=== PATIENT | female | born 1955 | race Caucasian/White ===

== ENCOUNTER → 2016-12-19 | Outpatient (CLI) | payer OTHER ==
[~2016-12-19] MED LIST: ARIMIDEX1 MG PO; CALCIUM 500 + D1 TAB PO; CALCIUM 600 +1 EAC5 PO; COMBIVENT U/D3 M2 INH; DELTASONE20 MG PO; DEXAMETHASONE4 MG PO; FOLIC ACID PO; FOLIC ACID1 MG PO; HYDROCODON-ACE1 EAC5 PO; MAG-OX 400400 M1 PO; MAGNESIUM27 MG; METHOTREXATE2.5 MG PO; METRONIDAZOLE PO; MOBIC PO; MOBIC15 MG PO; OMEPRAZOLE10 M1 PO; OMEPRAZOLE20 M2 PO; OMNICEF300 M1 PO; ROBITUSSIN-COU237 ML PO; TURMERIC 450-51 EACH PO; TYLOX 5/500 CAP1 CAP PO; VITAMIN B12 INJ; VITAMIN C1000 M2 PO; VITAMIN D31000 UNIT PO; ZITHROMAX500 MG PO; [UNRECOGNIZED DRUG - OTHER] PO
--- NOTE | ~2016-12-19 | CT55 ---
[facility] A Service of [facility] RADIOLOGY TEXT RESULTS PATIENT: SAMY BUCHANAN LOCATION: [facility] : 56 UNIT #: [id number] AGE: [address]: Yen Darby MD SEX: F ORDER DR: [id number] [facility] [address] [place], [place] [address] [id number] O MR#: [id number] [facility] #: [id number] NAME: SAMY BUCHANAN : 1955 SEX: F STUDY DATE/TIME: 12/19/2016 12:30 UNIT: [facility] ROOM: STUDY DESCRIPTION: CT Chest W Con Attending Physician: Yen Darby M.D. Referring Physician: Yen Darby M.D. Ordering Physician: Yen Darby M.D. Primary Care Physician: Hollie Ramires A.P.R.N. MEDICAL IMAGING REPORT This report is preliminary unless electronic signature is present EXAM CT chest with contrast 12/19/2016 INDICATIONS Restaging breast cancer. Malignant neoplasm lower inner quadrant of right breast. Observation for metastatic disease. PROCEDURE Contrast-enhanced CT of the chest. 100 mL Isovue 370. This CT exam was performed with one or more of the following radiation dose reduction techniques: automatic exposure control, adjustment of mA and/or kV according to patient size, and iterative reconstruction. COMPARISON 06/30/2011 FINDINGS There is interstitial thickening in both lungs lower lobe predominant and predominately in a subpleural location. There is also some focally prominent interstitial thickening superior segment of the left lower lobe and in the anterior right and left upper lobes. No suspicious nodule, pleural fluid or pneumothorax. Post lumpectomy change is seen in the lateral right breast with a persistent soft tissue defect. No adenopathy in the chest. No aggressive appearing bone lesion. IMPRESSION 1. No convincing evidence for metastatic disease to the chest. 2. Presumed lumpectomy defect in the lateral right breast. 3. Interstitial thickening in both lungs detailed above has progressed since 2010. Suggesting underlying interstitial lung disease. [facility] A Service of [facility] RADIOLOGY TEXT RESULTS PATIENT: SAMY BUCHANAN LOCATION: [facility] : 56 UNIT #: [id number] AGE: [address]: Yen Darby MD SEX: F ORDER DR: 4. More focal and prominent interstitial prominence in superior segment of the left lower lobe could represent focally prominent interstitial disease or superimposed pneumonia. Correlate with any current symptoms. 5. Refer to the separately dictated abdomen and pelvis CT for findings below the diaphragm. Dictated by... Rocky Henry M.D. THIS IS AN ELECTRONICALLY VERIFIED REPORT Rocky Henry M.D. at 12/20/2016 10:02 AM Floyd TD: 12/19/2016 16:27 JOB #: [id number] MEDICAL IMAGING REPORT Page 1 of 1 COPY
--- NOTE | ~2016-12-19 | CT2 ---
[facility] A Service of [facility] RADIOLOGY TEXT RESULTS PATIENT: SAMY BUCHANAN LOCATION: [facility] : 57 UNIT #: [id number] AGE: [address]: Yen Darby MD SEX: F ORDER DR: [id number] [facility] [address] [place], [place] [address] [id number] O MR#: [id number] [facility] #: [id number] NAME: SAMY BUCHANAN : 1955 SEX: F STUDY DATE/TIME: 12/19/2016 12:30 UNIT: [facility] ROOM: STUDY DESCRIPTION: CT Abd and Pelv W Cont Attending Physician: Yen Darby M.D. Referring Physician: Yen Darby M.D. Ordering Physician: Yen Darby M.D. Primary Care Physician: Hollie Ramires A.P.R.N. MEDICAL IMAGING REPORT This report is preliminary unless electronic signature is present EXAM CT abdomen and pelvis with contrast INDICATIONS Malignant neoplasm, lower inner quadrant right female breast. Restaging breast cancer. Observation for metastatic disease. PROCEDURE Contrast-enhanced CT of the abdomen and pelvis. This CT exam was performed with one or more of the following radiation dose reduction techniques: automatic exposure control, adjustment of mA and/or kV according to patient size, and iterative reconstruction. COMPARISON PET/CT from 04/26/2016 FINDINGS Abdomen with contrast: Liver, spleen, kidneys, adrenal glands, pancreas unremarkable. Previous cholecystectomy. Bowel loops nondilated. No abdominal adenopathy. Pelvis with contrast: No pelvic mass or fluid. No aggressive appearing bone lesion. IMPRESSION No convincing evidence for metastatic disease to the abdomen or pelvis. Dictated by... Rocky Henry M.D. THIS IS AN ELECTRONICALLY VERIFIED REPORT Rocky Henry M.D. at 12/20/2016 10:02 AM EED/to [facility] A Service of [facility] RADIOLOGY TEXT RESULTS PATIENT: SAMY BUCHANAN LOCATION: [facility] : 56 UNIT #: [id number] AGE: [address]: Yen Darby MD SEX: F ORDER DR: TD: 12/19/2016 17:22 JOB #: [id number] MEDICAL IMAGING REPORT Page 1 of 1 COPY
[2016-12-19 12:29] LABS: POC - GFR >60.0 mL/min (>60)
== END | disposition home or self-care (01) ==
LOC: CCAT 11:51
PROVIDERS: Internal Medicine Hematology
DX: C50.311 Malignant neoplasm of lower-inner quadrant of right female breast (principal); E86.0 Dehydration; D48.7 Neoplasm of uncertain behavior of other specified sites; C34.81 Malignant neoplasm of overlapping sites of right bronchus and lung; J98.4 Other disorders of lung
CPT/HCPCS: 71260; 74177; 82565; 93306; J1642; Q9967

== ENCOUNTER 2017-01-04 02:54 | Inpatient (IN) | payer OTHER ==
--- NOTE | ~2017-01-04 | DS ---
Unit #: [id number] #: [id number] Patient: SAMY BUCHANAN [id number] [address] [place], [place] [address] [id number] I MR#: [id number] NAME: SAMY BUCHANAN ROOM: 563 Age: 61 Sex: F Admission Date: 01/04/2017 : 1955 Discharge Date: 01/08/2017 Attending Physician: Mu Rawls M.D. Primary Care Physician: Hollie Ramires A.P.R.N. DISCHARGE SUMMARY PRINCIPAL DISCHARGE DIAGNOSES 1. Left lower lobe community acquire pneumonia. 2. Immunocompromised. 3. Left pleuritic chest pain. 4. Hypoxic respiratory failure acute. 5. Possible underlying chronic obstructive pulmonary disease. 6. History of tobacco use. 7. Pancytopenia. 8. Rheumatoid arthritis. 9. Breast cancer. 10. Seizure disorder. 11. Gastroesophageal reflux disease. PROCEDURES 1. Bronchoscopy on 01/05/2017. 2. Transfusion one pack RBCs on 01/07/2017. CONSULTANTS Dr. Lynch from pulmonary services. Please note, the patient had sepsis on admission with hypotension and an elevated procalcitonin. HOSPITAL COURSE The patient is a 61-year-old white female with history of rheumatoid arthritis, GE reflux disease, breast cancer, recent chemo on methotrexate for rheumatoid arthritis, prior smoker 30 pack years, quit 15 years ago, [facility] with left pleuritic chest pain. CT scan was performed to rule out PE and was negative for PE but positive for left lower lobe pneumonia. Her procalcitonin was elevated. She was hypotensive. She was admitted to the ICU and started on IV antibiotics, IV Solu-Cortef, was seen in consultation by Dr. Lynch from pulmonary services and started on DuoNeb per unit dose. Labs were followed. Because of thrombocytopenia, she had bilateral SCDs for DVT prophylaxis. Followup chest x-ray showed improving infiltrates. The patient remained afebrile. Her vital signs normalized. She was moved out of the ICU, her Solu-Cortef was weaned and she was eventually placed on prednisone and oral antibiotics in the form of Zithromax and Omnicef. She underwent bronchoscopy on 01/05/2017 showing no endobronchial lesions. Cultures were growing normal shyanne. AFB stain was negative. Cytology was negative. Influenza A and B on admission were negative as well. Her hemoglobin dropped to 7.2 yesterday and she was typed, crossmatched and transfused Unit #: [id number] #: [id number] Patient: SAMY BUCHANAN one unit of packed cells. This morning her white count is up to 6. Her hemoglobin is up to 9.1, platelets are up to 120,000. Her BMP and magnesium were completely within normal range. Her O2 sat remains low on room air at 79% with 95% on 2 L and this will be set up at home. DISCHARGE MEDICATIONS 1. She will be discharged home on 2 L nasal cannula continuously. 2. She is to resume her Robitussin DM 15 mL q.4 hours p.r.n. for cough. 3. Magnesium 400 mg p.o. b.i.d. 4. [place] 10/325 one q.4 hours p.r.n. for pain. 5. Protonix 20 mg daily. 6. She is given a prescription for Combivent Respimat one puff 4 times daily. 7. Prednisone 40 mg for two days and then decrease by 10 mg every 2 days until out. 8. Omnicef 300 mg b.i.d. for an additional five days. 9. Z-BRAULIO use as directed, dispense #1. FOLLOWUP She is to follow up in the office in one week, at which time will recheck her O2 sats and CBC. She is to followup with Dr. Lynch in four weeks with PFTs. Dictated by... Mu Rawls M.D. MIRELLA/tee TD: 01/09/2017 09:28 JOB #: [id number] DISCHARGE SUMMARY Page 1 of 1 X Mu Rawls MD X DISCHARGE SUMMARY
--- NOTE | ~2017-01-04 | DS ---
Unit #: [id number] #: [id number] Patient: SAMY BUCHANAN [id number] [address] [place], [place] [address] [id number] I MR#: [id number] NAME: SAMY BUCHANAN ROOM: [facility] Age: 61 Sex: F Admission Date: 01/04/2017 : 1955 Discharge Date: 01/08/2017 Attending Physician: Mu Rawls M.D. Primary Care Physician: Hollie Ramires A.P.R.N. DISCHARGE SUMMARY ADDENDUM The patient was to be discharged home on 01/08/17. We had arranged for her to go home on oxygen at 2 L nasal cannula. After I signed the orders, left the hospital and finished the dictation, I was called by the nurse saying that when the patient had gotten up and gone to the bathroom she desaturated down into the 80s. They placed her up to 4 L nasal cannula which got her O2 sats well above 90%. At that point, a chest x-ray was repeated and showed no change in the left upper lobe infiltrate with continued bilateral pleural effusions. ABGs were performed and showed a pH of 7.5, a pCO2 of 33 and a pAO2 of 62 on 4 L. A BNP was checked and was 177, not felt to be significant. The discharge was okay after being seen by the shipping associate who OK'd the discharge on 4 L and the patient was discharged home on the same meds plus 4 L instead of 2 L nasal cannula, to be followed up in the office. Dictated by... Rukhsana Arguelles/garrett TD: 01/17/2017 07:52 JOB #: [id number] DISCHARGE SUMMARY Page 1 of 1 X Mu Rawls MD X DISCHARGE SUMMARY
--- NOTE | ~2017-01-04 | CO ---
Unit #: [id number] #: [id number] Patient: SAMY BUCHANAN [id number] [address] [place], [place] [address] [id number] I MR#: [id number] NAME: SAMY BUCHANAN ROOM: [facility] Age: 61 Sex: F Admission Date: 01/04/2017 : 1955 Attending Physician: Krystian Lynch M.D. Primary Care Physician: Hollie Ramires A.P.R.N. CONSULTATION REPORT REASON FOR CONSULTATION Critical care management. CHIEF COMPLAINT Chest pain. HISTORY OF PRESENT ILLNESS This patient basically is a 61-year-old female with a history of breast cancer and rheumatoid arthritis and history of immunosuppression, presented to an outside emergency room with the complaint of left-sided chest discomfort and was found to be hypotensive and has been admitted to the intensive care unit. I am seeing the patient at the bedside, complaining of some chest pain and neck pain 3/10. Also, has been complaining of mild cough. Denies any nausea, vomiting, diarrhea. No abdominal pain. No vomiting. No blood in the stools. SOCIAL HISTORY She is an ex-smoker. No alcohol. No drug abuse. She has quit smoking 15 years ago. FAMILY HISTORY None as per record. MEDICATIONS As per MAR, has been reviewed. ALLERGIES Have been reviewed. PHYSICAL EXAMINATION VITAL SIGNS: Temperature currently 99, respirations 20, blood pressure 105/77. NEUROLOGIC: Awake, alert, oriented. No neuro deficit. HEENT: PERRLA plus 1. NECK: Supple. No JVD. CHEST: Bilateral air entry. Bilateral mild rhonchi. GASTROINTESTINAL: Nontender, soft. Bowel sounds positive. EXTREMITIES: No edema. DIAGNOSTIC STUDIES Labs and imaging have been removed. PAST MEDICAL HISTORY As described above include: Unit #: [id number] #: [id number] Patient: SAMY BUCHANAN 1. Breast cancer. 2. Gastroesophageal reflux disease. 3. Rheumatoid arthritis. 4. Seizure disorder. 5. Seasonal allergies. ASSESSMENT 1. Left lower lobe pneumonia, immunocompromised patient. Underlying chronic obstructive pulmonary disease very likely. 2. History of breast cancer and sepsis present on admission. PLAN At this point, plan is to continue IV fluid aggressively and will get a flu swab and also order respiratory pathogen panel. Along with that, get a procalcitonin level, broad-spectrum IV antibiotics, stress-dose steroid, gastrointestinal/deep venous thrombosis prophylaxis, and pain control. The patient will need bronchoscopy. Please see orders for detailed plan. Thank you very much for this consultation. Dictated by... Rukhsana Morgan TD: 01/04/2017 11:48 JOB #: [id number] CONSULTATION REPORT Page 1 of 1 X Krystian Lynch MD X CONSULTATION REPORT
--- NOTE | ~2017-01-04 | HP ---
Unit #: [id number] #: [id number] Patient: SAMY BUCHANAN [id number] [address] [place], [place] [address] [id number] I MR#: [id number] NAME: SAMY BUCHANAN ROOM: 563 Age: 61 Sex: F Admission Date: 01/04/2017 : 1955 Attending Physician: Meseret Cuba M.D. Primary Care Physician: Hollie Ramires A.P.R.N. HISTORY AND PHYSICAL HISTORY OF PRESENT ILLNESS The patient is a 61-year-old white female with history of tobacco use in the past, breast cancer on recent chemo and radiation therapy, rheumatoid arthritis and history of GE reflux disease who presented to an [facility] medical emergency room complaining of left-sided posterior pleuritic chest pain and shortness of air. In the emergency room she was hypoxic, 89% on room air. Apparently a CT scan was done, but I cannot find the results in the numerous 92 pages of literature they sent, but apparently it was negative for PE and positive for left lower lobe infiltrate. She was inadvertently admitted to Dr. Cuba by mistake and has been transferred back to our service. In the meantime she has been seen by Dr. Lynch, airfield operations specialist, started on IV antibiotics, had a bronchoscopy yesterday that showed no endobronchial lesions. Cultures are currently pending. Her blood pressure is improving. O2 sats are fairly good. (1) is improving. ALLERGIES Naprosyn, phenobarbital, Pyridium, sulfa drugs. MEDICATIONS PRIOR TO ADMISSION 1. Calcium plus D 1 daily. 2. Hydromorphone 8 mg q.4 hours p.r.n. 3. Herceptin 440 mg IV weekly; she is currently not on this. 4. Vitamin D 1,000 units daily. 5. B12 - 1,000 mcg injectable, dose unknown. 6. Folic acid 1 mg daily. 7. Hydroxyzine p.r.n. 8. Meloxicam 15 mg daily. 9. Methotrexate 2.5 mg 6 tabs weekly. 10. Multivitamins daily. 11. Omeprazole 20 mg daily. PAST MEDICAL HISTORY 1. History of breast cancer. 2. Tonsillectomy. 3. Tubal ligation. 4. Spinal fusion. 5. Cholecystectomy. 6. Hernia repair. 7. Right carpal tunnel repair. SOCIAL HISTORY She is a prior smoker, 30 pack-years, quit 15 years ago. No alcohol or street drug use. Unit #: [id number] #: [id number] Patient: SAMY BUCHANAN PHYSICAL EXAMINATION GENERAL: Currently she is awake, alert, oriented x3, in no acute distress. VITALS: Afebrile, pulse 80s, respirations 20, blood pressure 106/66, room air O2 sats 94% on 2 liters. HEENT: Unremarkable, except for alopecia. NECK: Neck was supple without JVD, bruits, adenopathy or thyromegaly. CHEST: Left lower lobe rhonchi; otherwise, clear to auscultation. CARDIOVASCULAR: Heart is regular and bradycardic without an S3 gallop or murmur appreciated. ABDOMEN: Abdomen was soft, nondistended, nontender with positive bowel sounds and no hepatosplenomegaly. EXTREMITIES: Extremities showed no clubbing, cyanosis or edema. DIAGNOSTIC STUDIES LAB VALUES: The only thing I have in the chart is hemoglobin from yesterday at 8.2. CMP from yesterday was normal except for chloride of 113, glucose of 111, total protein 5.1, albumin of 2.3. Influenza A and B screen were negative. Procalcitonin was 1.38. Cardiac enzymes normal x1 set. IMPRESSION 1. Left lower lobe community-acquired pneumonia. 2. Pleuritic chest pain on the left. 3. Rheumatoid arthritis. 4. Breast cancer. 5. Sepsis on admission with hypotension, elevated procalcitonin. 6. Seizure disorder. 7. History of tobacco use. PLAN Recheck her labs. SCDs for DVT prophylaxis. Continue IV Zithromax and Rocephin. Recheck x-ray. Followup on bronchoscopy cultures. Dictated by Mu Rawls M.D. MIRELLA/jesus TD: 01/06/2017 07:34 JOB #: [id number] HISTORY AND PHYSICAL Page 1 of 1 X Mu Rawls MD X HISTORY AND PHYSICAL
--- NOTE | ~2017-01-04 | OR ---
Unit #: [id number] #: [id number] Patient: SAMY BUCHANAN [id number] [address] [address] [id number] I MR#: [id number] NAME: SAMY BUCHANAN ROOM: 563 Date of Procedure: 01/05/2017 Admission Date: 01/04/2017 Surgeon: Krystian Lynch M.D. : 1955 Attending Physician: Krystian Lynch M.D. Primary Care Physician: Hollie Ramires A.P.R.N. PROCEDURE OPERATIVE NOTE PREPROCEDURE DIAGNOSIS Pneumonia. POSTPROCEDURE DIAGNOSIS Pneumonia. PROCEDURE PERFORMED Diagnostic bronchoscopy. INDICATION Pneumonia. DETAILS OF THE PROCEDURE After taking consent from the patient explaining risks and benefits, patient placed in proper position. Bronchoscope introduced through the oral cavity. Vocal cords appeared to be symmetrically moving toward the midline. Trachea was normal. Salena was sharp. We examined the right upper, right middle, right lower lobe, left upper lobe, lingula and left lower lobe. No endobronchial lesion was found. There were thick mucoid secretions in both lungs, which were therapeutically suctioned. Then, we did a bronchoalveolar lavage in the left lower lobe area with 60 mL saline in and 20 mL back. Patient tolerated the procedure very well. No complication happened. Dictated by... Rukhsana Morgan TD: 01/05/2017 11:43 JOB #: [id number] Unit #: [id number] #: [id number] Patient: SAMY BUCHANAN PROCEDURE OPERATIVE NOTE Page 1 of 1 X Krystian Lynch MD X PROCEDURE OPERATIVE NOTE
--- NOTE | ~2017-01-04 | CR63 ---
[facility] A Service of [facility] RADIOLOGY TEXT RESULTS PATIENT: SAMY BCUHANAN LOCATION: [facility] 563-01 : [birth year] UNIT #: [id number] AGE: [address]: uM Rawls MD SEX: F ORDER DR: [id number] [facility] [address] [place], [place] [address] [id number] I MR#: [id number] Acc #: [id number] NAME: SAMY BUCHANAN : 1955 SEX: F STUDY DATE/TIME: 01/08/2017 13:52 UNIT: [facility] ROOM: [facility] STUDY DESCRIPTION: CR Chest 2 View Attending Physician: Mu Rawls M.D. Ordering Physician: Mu Rawls M.D. Primary Care Physician: Hollie Ramires A.P.R.N. MEDICAL IMAGING REPORT This report is preliminary unless electronic signature is present EXAM PA and lateral chest radiograph. HISTORY Decreased O2 saturations today. Shortness of breath for 6 days. COMPARISON PA and lateral views are obtained and compared directly to the previous radiograph of 01/06/2017. FINDINGS The heart size is stable. Left-sided perihilar interstitial infiltrate has not changed. The patient does have bilateral pleural effusions, and the pleural fluid appears about the same. Interstitial infiltrates are unchanged. There is a little more focal increased density in the right upper lobe, compared with old films. CONCLUSION No change in the left upper lobe infiltrate. Continued bilateral pleural effusions. Patient does have a little more focal infiltrate in the right upper lobe, compared with the old films. Dictated by... Flavio Guaman M.D. THIS IS AN ELECTRONICALLY VERIFIED REPORT Flavio Guaman M.D. at 01/09/2017 5:02 PM PLACIDO/kaycee TD: 01/08/2017 15:33 JOB #: [id number] [facility] A Service of [facility] RADIOLOGY TEXT RESULTS PATIENT: SAMY BUCHANAN LOCATION: [facility] 563-01 : [birth year] UNIT #: [id number] AGE: [address]: Mu Rawls MD SEX: F ORDER DR: MEDICAL IMAGING REPORT Page 1 of 1 COPY
--- NOTE | ~2017-01-04 | CR63 ---
[facility] A Service of [facility] RADIOLOGY TEXT RESULTS PATIENT: SAMY BUCHANAN LOCATION: [facility] 563-01 : 57 UNIT #: [id number] AGE: [address]: Mu Rawls MD SEX: F ORDER DR: [id number] [facility] [address] [place], [place] [address] [id number] I MR#: [id number] Acc #: [id number] NAME: SAMY BUCHANAN : 1955 SEX: F STUDY DATE/TIME: 01/06/2017 9:00 UNIT: [facility] ROOM: [facility] STUDY DESCRIPTION: CR Chest 2 View Attending Physician: Meseret Cuba M.D. Ordering Physician: Mu Rawls M.D. Primary Care Physician: Hollie Ramires A.P.R.N. MEDICAL IMAGING REPORT This report is preliminary unless electronic signature is present EXAM Two-view chest INDICATION Pneumonia. Restaging. FINDINGS PA and lateral views of the chest compared to CT chest dated 01/04/2017. The heart and mediastinal contours are unchanged. There is improving airspace opacity in the left [id number]-khkqj lung. There is still fairly significant consolidation in the left mid lung. Small left pleural effusion is unchanged. The right lung is clear. IMPRESSION 1. There is improving aeration of the left lung. There is still fairly significant amount for airspace consolidation. Continued followup is recommended. 2. Small left pleural effusion. Dictated by... Wagner Jaimes M.D. THIS IS AN ELECTRONICALLY VERIFIED REPORT Wagner Jaimes M.D. at 01/06/2017 3:12 PM Armaan TD: 01/06/2017 10:07 JOB #: [id number] MEDICAL IMAGING REPORT Page 1 of 1 COPY
[~2017-01-04 02:54] MED LIST changes: -ARIMIDEX1 MG PO; -CALCIUM 600 +1 EAC5 PO; -COMBIVENT U/D3 M2 INH; -DELTASONE20 MG PO; -FOLIC ACID1 MG PO; -MAG-OX 400400 M1 PO; -MOBIC15 MG PO; -OMEPRAZOLE20 M2 PO; -OMNICEF300 M1 PO; -TURMERIC 450-51 EACH PO; -VITAMIN B12 INJ; -VITAMIN C1000 M2 PO; -VITAMIN D31000 UNIT PO; -ZITHROMAX500 MG PO
[2017-01-04 09:27] LABS: HEMATOCRIT 26.1 % (35.0-45.0); HEMOGLOBIN 8.9 gm/dL (12.0-16.0)
[2017-01-04 10:15] LABS: %MB 2.9 % (0.0-4.0); MB 2.3 ng/ml
[2017-01-04 15:25] LABS: HEMATOCRIT 25.4 % (35.0-45.0); HEMOGLOBIN 8.8 gm/dL (12.0-16.0)
[2017-01-04 18:04] LABS: INFLUENZA A NEG (NEG); INFLUENZA B NEG (NEG)
[2017-01-04 21:21] LABS: HEMATOCRIT 27.1 % (35.0-45.0); HEMOGLOBIN 9.3 gm/dL (12.0-16.0)
[2017-01-05 06:08] LABS: ALBUMIN SERUM 2.3 g/dL (3.5-5.0); BILIRUBIN,TOTAL 0.5 mg/dL (0.2-2.0); BUN/CREATININE RATIO 17.77; CALCIUM SERUM 8.6 mg/dL (8.4-10.2); CREATININE SERUM 0.9 mg/dL (0.6-1.4); GLOM FILT RATE Estimated 69.5 mL/min (>60); POTASSIUM 3.7 mmol/L (3.5-5.1); PROTEIN TOTAL SERUM 5.1 g/dL (6.0-8.3)
[2017-01-05 07:30] LABS: HEMATOCRIT 22.3 % (35.0-45.0)
[2017-01-05 07:31] LABS: HEMOGLOBIN 7.6 gm/dL (12.0-16.0)
[2017-01-05 09:14] LABS: HEMATOCRIT 24.1 % (35.0-45.0); HEMOGLOBIN 8.2 gm/dL (12.0-16.0)
[2017-01-05 13:16] LABS: BODY FLUID APPEARANCE TURBID; BODY FLUID SOURCE BRONCHIAL LAVAGE
[2017-01-06 08:04] LABS: HEMOGLOBIN 7.8 gm/dL (12.0-16.0); MEAN CORPUSCULAR HEMOGLOBIN 34.3 PG (28-34); MEAN CORPUSCULAR HGB CONC 33.9 g/dL (30-36); MEAN PLATELET VOLUME 8.5 FL (6.5-11.5); RED BLOOD COUNT 2.28 X10e (3.90-5.30); RED CELL DISTRIBUTION WIDTH 14.2 % (11.0-15.5); WHITE BLOOD COUNT 4.5 X10e3 (4.0-10.5)
[2017-01-06 08:34] LABS: ALBUMIN SERUM 2.4 g/dL (3.5-5.0); BILIRUBIN,TOTAL 0.3 mg/dL (0.2-2.0); CALCIUM SERUM 8.7 mg/dL (8.4-10.2); CREATININE SERUM 0.8 mg/dL (0.6-1.4); GLOM FILT RATE Estimated 80.2 mL/min (>60); POTASSIUM 3.4 mmol/L (3.5-5.1); PROTEIN TOTAL SERUM 5.4 g/dL (6.0-8.3)
[2017-01-07 06:15] LABS: HEMATOCRIT 21.2 % (35.0-45.0); HEMOGLOBIN 7.2 gm/dL (12.0-16.0); MEAN CELL VOLUME 100.4 FL (83-96); MEAN CORPUSCULAR HEMOGLOBIN 34.2 PG (28-34); MEAN CORPUSCULAR HGB CONC 34.1 g/dL (30-36); MEAN PLATELET VOLUME 7.6 FL (6.5-11.5); RED BLOOD COUNT 2.11 X10e (3.90-5.30); RED CELL DISTRIBUTION WIDTH 14.3 % (11.0-15.5); WHITE BLOOD COUNT 4.2 X10e3 (4.0-10.5)
[2017-01-07 06:47] LABS: CALCIUM SERUM 8.6 mg/dL (8.4-10.2); CREATININE SERUM 0.8 mg/dL (0.6-1.4); GLOM FILT RATE Estimated 80.2 mL/min (>60); MAGNESIUM 1.7 mg/dL (1.6-3.0); POTASSIUM 3.2 mmol/L (3.5-5.1)
[2017-01-08 07:18] LABS: BASOPHIL% 0.2 % (0-2.5); EOSINOPHIL# 0.1 X10e3 (0-0.7); HEMATOCRIT 26.6 % (35.0-45.0); HEMOGLOBIN 9.1 gm/dL (12.0-16.0); LYMPHOCYTE# 0.9 X10e3 (1.0-3.5); LYMPHOCYTE% 14.3 % (17.0-45.0); MEAN CELL VOLUME 97.5 FL (83-96); MEAN CORPUSCULAR HEMOGLOBIN 33.4 PG (28-34); MEAN CORPUSCULAR HGB CONC 34.2 g/dL (30-36); MEAN PLATELET VOLUME 7.9 FL (6.5-11.5); MONOCYTE# 0.8 X10e3 (0-1.0); MONOCYTE% 12.9 % (3.0-12.0); NEUTROPHIL# 4.3 X10e3 (1.5-7.1); NEUTROPHIL% 71.6 % (40-75); PLATELET COUNT 120 X10e3 (140-420); RED BLOOD COUNT 2.73 X10e (3.90-5.30); RED CELL DISTRIBUTION WIDTH 18.1 % (11.0-15.5)
[2017-01-08 07:24] LABS: DIFF IND NO
[2017-01-08 07:45] LABS: BUN/CREATININE RATIO 13.75; CALCIUM SERUM 9.3 mg/dL (8.4-10.2); CREATININE SERUM 0.8 mg/dL (0.6-1.4); GLOM FILT RATE Estimated 80.2 mL/min (>60); POTASSIUM 3.9 mmol/L (3.5-5.1)
[2017-01-08] MEDS ORDERED: COMBIVENT U/D3 M2 INH (11:56)
[2017-01-08] MEDS ORDERED: DELTASONE20 MG PO (11:59)
[2017-01-08] MEDS ORDERED: OMNICEF300 M1 PO (12:00)
[2017-01-08] MEDS ORDERED: ZITHROMAX500 MG PO (12:02)
[2017-01-08] MEDS ORDERED: MAG-OX 400400 M1 PO (12:03)
[2017-01-08] MEDS ORDERED: OMEPRAZOLE20 M2 PO (12:06)
[2017-01-08 13:27] LABS: ARTERIAL BLD GAS O2 SATURATION 92.5 % (90.0-100.0); ARTERIAL BLOOD GAS CARBOXY HB 1.1 %sat (0.0-9.0); ARTERIAL BLOOD GAS HCO3 26.4 mmol/L; ARTERIAL BLOOD GAS MET HB 0.5 %sat (0.0-2.0); ARTERIAL BLOOD GAS PCO2 33.5 mmHg (35.0-45.0); ARTERIAL BLOOD GAS pH 7.505 (7.350-7.450)
[2017-01-08 13:29] LABS: ARTERIAL BLOOD GAS ALLEN TEST N; ARTERIAL BLOOD GAS ART SITE LEFT RADIAL; ARTERIAL BLOOD GAS DELIVERY NASAL CANNULA; ARTERIAL DRAW? YES
[2017-02-23] MEDS ORDERED: MOBIC15 MG PO (16:20)
[2017-02-23] MEDS ORDERED: METHOTREXATE2.5 MG PO (16:20)
[2017-02-23] MEDS ORDERED: FOLIC ACID1 MG PO (16:20)
[2017-02-23] MEDS ORDERED: ARIMIDEX1 MG PO (16:21)
[2017-02-23] MEDS ORDERED: VITAMIN D31000 UNIT PO (16:22)
[2017-02-23] MEDS ORDERED: VITAMIN C1000 M2 PO (16:22)
[2017-02-23] MEDS ORDERED: CALCIUM 600 +1 EAC5 PO (16:22)
[2017-02-23] MEDS ORDERED: TURMERIC 450-51 EACH PO (16:23)
[2017-02-28] MEDS ORDERED: VITAMIN B12 INJ (07:05)
== END 2017-01-08 17:30 | disposition home health service (06) | DRG 853 ==
LOC: CICCU2 02:54 → C5C 01-05 07:57
PROVIDERS: Internal Medicine; Specialist
PROC: 0B9M8ZZ Drainage of Bilateral Lungs, Via Natural or Artificial Opening Endoscopic (ICD-10-PCS; principal; 2017-01-05 10:56)
PROC: 0B9J8ZX Drainage of Left Lower Lung Lobe, Via Natural or Artificial Opening Endoscopic, Diagnostic (ICD-10-PCS; 2017-01-05 10:56)
PROC: 30233N1 Transfusion of Nonautologous Red Blood Cells into Peripheral Vein, Percutaneous Approach (ICD-10-PCS; 2017-01-07)
DX: A41.9 Sepsis, unspecified organism (principal); J18.9 Pneumonia, unspecified organism; J96.01 Acute respiratory failure with hypoxia; D61.818 Other pancytopenia; D89.9 Disorder involving the immune mechanism, unspecified; J44.0 Chronic obstructive pulmonary disease with (acute) lower respiratory infection; D69.6 Thrombocytopenia, unspecified; C50.919 Malignant neoplasm of unspecified site of unspecified female breast; D64.9 Anemia, unspecified; Z87.891 Personal history of nicotine dependence; M06.9 Rheumatoid arthritis, unspecified; R56.9 Unspecified convulsions; K21.9 Gastro-esophageal reflux disease without esophagitis; Z98.51 Tubal ligation status; Z90.49 Acquired absence of other specified parts of digestive tract
CPT/HCPCS: 36600; 71020; 80048; 80053; 82308; 82550; 82553; 82803; 82947; 83735; 83880; 84132; 84484; 85014; 85018; 85025; 85027; 86850; 86900; 86901; 86923; 87070; 87102; 87106; 87116; 87205; 87206; 87252; 87254; 87278; 87804; 88108; 88305; 88312; 89051; 94640; 94760; 94761; J0171; J0456; J0696; J1720; J2250; J2270; J3010; J3475; P9016

== ENCOUNTER → 2017-02-13 | Outpatient (CLI) | payer OTHER ==
[~2017-02-13] MED LIST changes: +ARIMIDEX1 MG PO; +CALCIUM 600 +1 EAC5 PO; +COMBIVENT U/D3 M2 INH; +DELTASONE20 MG PO; +FOLIC ACID1 MG PO; +MAG-OX 400400 M1 PO; +MOBIC15 MG PO; +OMEPRAZOLE20 M2 PO; +OMNICEF300 M1 PO; +TURMERIC 450-51 EACH PO; +VITAMIN B12 INJ; +VITAMIN C1000 M2 PO; +VITAMIN D31000 UNIT PO; +ZITHROMAX500 MG PO
--- NOTE | ~2017-02-13 | CT57 ---
[facility] A Service of [facility] & [facility] RADIOLOGY TEXT RESULTS PATIENT: SAMY BUCHANAN LOCATION: [facility] : 57 UNIT #: [id number] AGE: [address]: Krystian Lynch MD SEX: F ORDER DR: [id number] [facility] [address] [place], [place] [address] [id number] O MR#: [id number] Acc #: [id number] NAME: SAMY BUCHANAN : 1955 SEX: F STUDY DATE/TIME: 02/13/2017 10:04 UNIT: [facility] ROOM: STUDY DESCRIPTION: CT Chest Wo Cont Attending Physician: Krystian Lynch M.D. Referring Physician: Krystian Lynch M.D. Ordering Physician: Krystian Lynch M.D. Primary Care Physician: Hollie Ramires A.P.R.N. MEDICAL IMAGING REPORT This report is preliminary unless electronic signature is present EXAM CT chest without contrast 02/13/2017 INDICATIONS Congestion for 1 month. Patient had a CT angiogram of the chest on January 04, 2017 which showed some infiltrates within the left lung. TECHNIQUE Axial CT images were obtained from the thoracic inlet through the dome of the diaphragm. No intravenous contrast material was administered. This CT exam was performed with one or more of the following radiation dose reduction techniques: automatic exposure control, adjustment of mA and/or kV according to patient size, and iterative reconstruction. FINDINGS Background emphysematous changes are noted. There are areas of consolidation which are identified within both lungs. These are associated with some bronchiectasis and peripheral reticulation. There is some ground-glass components as well. These are actually bilateral although they have increased when compared to the prior study from November 2016 although mass-like consolidation within the left lower lobe has developed a more mixed semisolid appearance. Additional fibrotic changes are identified at the lung bases bilaterally. Again associated with some peripheral reticulation and ground-glass infiltrates. Thyroid gland, trachea esophagus appear unremarkable. Patient has a left-sided Medi-Port which extends into the superior vena cava. Mediastinal lymph nodes do not appear pathologically enlarged. Thoracic aorta measures within normal size limits. A small precarinal node has increased when compared to the prior exam now measuring up to about 8 mm in size. There are postsurgical changes seen within the right breast and there is a small pericardial effusion which is STS. [facility] A Service of [facility] & [facility] RADIOLOGY TEXT RESULTS PATIENT: SAMY BUCHANAN LOCATION: [facility] : 57 UNIT #: [id number] AGE: [address]: Krystian Lynch MD SEX: F ORDER DR: new when compared to the prior exam. There is also a tiny left loculated pleural effusion. Review of bony windows does not demonstrate any aggressive osseous abnormalities. IMPRESSION 1. Mass-like consolidation, which was previously identified within the left lower lobe has become more ground-glass in appearance although it still has a solid component. I suspect this is a benign finding and may reflect some resolving pneumonia. There are persistent areas of ground glass infiltration seen throughout the lungs bilaterally, some of these are associated with peripheral reticulation and some of them are actually associated with some bronchiectasis. I think these have progressed when compared to an exam from December 19, 2016. I do wonder if this could reflect some progressive interstitial lung disease. Continued followup is suggested. Patient does have a precarinal node which still measures within normal size limits at 8 mm but is increased in size when compared to the prior exam. Certainly attention to it on subsequent followup exam is recommended. 2. Also noted but mentioned in the report there is an area of consolidation seen within the right middle lobe measuring up to 1.5 x 0.8 cm. I suspect this is probably benign given relatively rapid development, but I would suggest short term CT follow up in 3 months. Dictated by... Samantha Cantu M.D. THIS IS AN ELECTRONICALLY VERIFIED REPORT Samantha Cantu M.D. at 02/14/2017 4:44 PM BOBBI/toni TD: 02/13/2017 16:54 JOB #: [id number] MEDICAL IMAGING REPORT Page 1 of 1 COPY
== END | disposition home or self-care (01) ==
LOC: CRC 08:40
DX: J18.9 Pneumonia, unspecified organism (principal); R06.02 Shortness of breath; J18.1 Lobar pneumonia, unspecified organism; R91.8 Other nonspecific abnormal finding of lung field
CPT/HCPCS: 71250; 94060; 94726; 94729

== ENCOUNTER → 2017-02-28 | Day surgery (SDC) | payer OTHER ==
--- NOTE | ~2017-02-28 | OR ---
Unit #: [id number] #: [id number] Patient: SAMY BUCHANAN [id number] [address] [address] [id number] O MR#: [id number] NAME: SAMY BUCHANAN ROOM: Date of Procedure: 02/28/2017 Admission Date: 02/28/2017 Surgeon: Krystian Lynch M.D. : 1955 Attending Physician: Krystian Lynch M.D. Primary Care Physician: Hollie Ramires A.P.R.N. PROCEDURE OPERATIVE NOTE PREOPERATIVE DIAGNOSIS Pneumonia. POSTOPERATIVE DIAGNOSIS Pneumonia. PROCEDURE PERFORMED Diagnostic bronchoscopy. INDICATOIN FOR PROCEDURE Pneumonia. PROCEDURE After taking consent from the patient, after explaining the risks and benefits, the patient was placed in the appropriate position. The bronchoscope was introduced through the oral cavity. The vocal cords appeared to be symmetrically moving toward the midline. Trachea was normal. Salena was sharp. We examined the right upper, right middle and right lower lobe, left upper lobe, lingula and left lower lobe. No endobronchial lesion was found. There were thick mucoid secretions in both lungs which were therapeutically suctioned. We did a bronchoalveolar lavage in the left upper lobe and left lower lobe area with 120 ml saline in and 30 ml back. The patient tolerated the procedure very well. No complications happened. Dictated by... Rukhsana Morgan TD: 02/28/2017 08:14 JOB #: [id number] Unit #: [id number] #: [id number] Patient: SAMY BUCHANAN PROCEDURE OPERATIVE NOTE Page 1 of 1 X Krystian Lynch MD PROCEDURE OPERATIVE NOTE
--- NOTE | ~2017-02-28 | HP ---
Unit #: [id number] #: [id number] Patient: SAMY BUCHANAN [id number] [address] [address] [id number] O MR#: [id number] NAME: SAMY BUCHANAN ROOM: Age: 62 Sex: F Admission Date: 02/28/2017 : 1955 Attending Physician: Krystian Lynch M.D. Primary Care Physician: Hollie Ramires A.P.R.N. HISTORY AND PHYSICAL CHIEF COMPLAINT Abnormal CT of the chest. HISTORY OF PRESENT ILLNESS The patient is a 61-year-old female with a past medical history of breast cancer, rheumatoid arthritis, immunosuppression, chronic. She was admitted for bronchoscopy because of abnormal CT of the chest. She is complaining of mild shortness of breath. She denies any other complaint. PAST MEDICAL HISTORY As described above. SOCIAL HISTORY Ex-smoker. No alcohol or drug abuse. FAMILY HISTORY None. CURRENT MEDICATIONS As per NOV. Has been reviewed. PHYSICAL EXAMINATION VITALS: Temperature 98, pulse 67, respiratory rate 12, blood pressure 110/70. HEENT: Pupils equally round and reactive to light and accommodation. NECK: Supple. No jugular venous distension. CHEST: Bilateral air entry. Bilateral mild rhonchi. ABDOMEN: Nontender and soft. Bowel sounds positive. EXTREMITIES: No edema. SKIN: No rashes. No ulcers. LYMPH: No lymphadenopathy. NEUROLOGIC: Awake, alert and oriented. No neurologic deficit. DIAGNOSTIC STUDIES IMAGING: Reviewed. LABORATORY: Reviewed. ASSESSMENT 1. Abnormal CT of the chest. 2. Recent history of pneumonia. 3. Immunosuppression. 4. History of breast cancer. 5. History of gastroesophageal reflux disease. Unit #: [id number] #: [id number] Patient: SAMY BUCHANAN 6. Rheumatoid arthritis. 7. Seizure disorder. 8. (1) PLAN Proceed with bronchoscopy and bronchoalveolar lavage. The patient is agreeable. The risks and benefits were discussed. She will follow next week in my office for [facility] culture results. Dictated by Rukhsana Morgan/james TD: 02/28/2017 08:06 JOB #: [id number] HISTORY AND PHYSICAL Page 1 of 1 X Krystian Lynch MD HISTORY AND PHYSICAL
[2017-02-28 10:26] LABS: BODY FLUID APPEARANCE TURBID; BODY FLUID SOURCE BRONCHIAL LAVAGE
== END | disposition home or self-care (01) ==
LOC: COPS 02-24 13:30
PROVIDERS: Internal Medicine
DX: J18.9 Pneumonia, unspecified organism (principal); C78.00 Secondary malignant neoplasm of unspecified lung; M06.9 Rheumatoid arthritis, unspecified; D89.9 Disorder involving the immune mechanism, unspecified; G40.909 Epilepsy, unspecified, not intractable, without status epilepticus; K21.9 Gastro-esophageal reflux disease without esophagitis; Z85.3 Personal history of malignant neoplasm of breast; Z87.891 Personal history of nicotine dependence; Z88.2 Allergy status to sulfonamides; Z88.8 Allergy status to other drugs, medicaments and biological substances; Z91.048 Other nonmedicinal substance allergy status; Z79.891 Long term (current) use of opiate analgesic; Z79.1 Long term (current) use of non-steroidal anti-inflammatories (NSAID); Z79.899 Other long term (current) drug therapy; Z98.51 Tubal ligation status; Z90.49 Acquired absence of other specified parts of digestive tract; Z98.890 Other specified postprocedural states
CPT/HCPCS: 87070; 87102; 87106; 87107; 87116; 87205; 87206; 87252; 87254; 87278; 88108; 88305; 88312; 89051; J0171; J2250

== ENCOUNTER → 2017-03-10 | Outpatient (CLI) | payer OTHER ==
--- NOTE | ~2017-03-10 | MY26 ---
[facility] A Service of [facility] & [facility] RADIOLOGY TEXT RESULTS PATIENT: SAMY BUCHANAN LOCATION: [facility] : 57 UNIT #: [id number] AGE: [address]: Yen Darby MD SEX: F ORDER DR: [id number] [facility] [address] [place], [place] [address] [id number] O MR#: [id number] Acc #: [id number] NAME: SAMY BUCHANAN : 1955 SEX: F STUDY DATE/TIME: 03/10/2017 9:59 UNIT: [facility] ROOM: STUDY DESCRIPTION: MY [facility] DIAGNOSTIC W/ CAD BILAT Attending Physician: Yen Darby M.D. Referring Physician: Yen Darby M.D. Ordering Physician: Yen Darby M.D. Primary Care Physician: Hollie Ramires A.P.R.N. MEDICAL IMAGING REPORT This report is preliminary unless electronic signature is present EXAM Bilateral digital diagnostic mammogram with CAD, 03/10/2017 HISTORY 62-year-old female with history of right breast cancer, lumpectomy and right axillary lymph node dissection June 2016. The patient has right breast wound for which she is currently still packing the wound site. Patient now states she feels an abnormality in the lower inner right breast. COMPARISON Bilateral digital diagnostic mammogram, 01/14/2016 FINDINGS CC and MLO views were obtained of each breast and true ML view was obtained of the right breast. The study was performed utilizing digital technique and reviewed with an FDA-approved CAD device. Trabecular thickening and architectural distortion, with central fat density, is demonstrated in the upper outer right breast corresponding to patient's lumpectomy site. A biopsy clip is also seen overlying the right axillary region. Triangular marker was placed over the lower inner right breast anteriorly. Just deep to this marker, a well-circumscribed 5.0 mm peripherally calcified oil is seen which is unchanged. Scattered fibroglandular densities are present within each breast. Within the left breast, the parenchymal pattern appears stable. No suspicious cluster of microcalcifications was seen. Targeted imaging was performed of the right breast at the site of patient's palpable complaint. A 5.0 mm benign appearing round calcification is seen measuring about 5.0 mm, corresponding to mammographic findings. There is mild diffuse edema within the lower inner STS. [facility] A Service of [facility] & [facility] RADIOLOGY TEXT RESULTS PATIENT: SAMY BUCHANAN LOCATION: [facility] : 57 UNIT #: [id number] AGE: [address]: Yen Darby MD SEX: F ORDER DR: right breast, but no suspicious solid mass lesion is identified. No well-defined drainable fluid collection is seen. Sonographic imaging was performed from the 2 o'clock through the 6 o'clock axis, and 9 o'clock axis, subareolar region. Sonographic imaging was performed of the left breast with several images at the 12, 3, 6 and 9 o'clock positions, as well, without any appreciable abnormality identified. IMPRESSION Post lumpectomy changes in the upper outer right breast. There are no features to suggest recurrent malignancy. The patient's site of palpable complaint may correspond to a benign appearing 5.0 mm calcified oil cyst just deep to the skin surface at this location. There is also mild diffuse breast edema seen on the ultrasound. The left breast is negative. Continued annual screening mammogram recommended. Findings and recommendations were discussed with the patient today in the radiology department. Patients over the age of 40 are entered into a reminder system with target due date for the next mammogram. A result letter will also be sent to the patient. BIRADS: 2 Benign Finding Dictated by... Marj Young M.D. THIS IS AN ELECTRONICALLY VERIFIED REPORT Marj Young M.D. at 03/13/2017 9:28 AM LEEANNE/heather TD: 03/10/2017 14:06 JOB #: [id number] MEDICAL IMAGING REPORT Page 1 of 1 COPY
--- NOTE | ~2017-03-10 | US17 ---
[facility] A Service of [facility] & [facility] RADIOLOGY TEXT RESULTS PATIENT: SAMY BUCHANAN LOCATION: [facility] : 57 UNIT #: [id number] AGE: [address]: Yen Darby MD SEX: F ORDER DR: [id number] [facility] [address] [place], [place] [address] [id number] O MR#: [id number] Acc #: [id number] NAME: SAMY BUCHANAN : 1955 SEX: F STUDY DATE/TIME: 03/10/2017 10:37 UNIT: [facility] ROOM: STUDY DESCRIPTION: US Breast Bilateral Attending Physician: Yen Darby M.D. Referring Physician: Yen Darby M.D. Ordering Physician: Yen Darby M.D. Primary Care Physician: Hollie Ramires A.P.R.N. MEDICAL IMAGING REPORT This report is preliminary unless electronic signature is present EXAM Bilateral diagnostic breast ultrasound date 03/20/2017 HISTORY The patient complains of palpable abnormality in the lower inner right breast today. The patient has undergone lumpectomy and lymph node dissection in the upper outer right breast for breast cancer in June of 2016. Patient states she has an open wound which she is still packing. FINDINGS Please refer to the diagnostic mammogram report for this same day for full description mammographic sonographic findings and recommendations. IMPRESSION 1. BIRADS 2. Benign findings. 2. Please refer to the diagnostic mammogram report from the same day for full description mammographic and sonographic findings and recommendations. Patients over the age of 40 are entered into a reminder system with target due date for the next mammogram. A result letter will also be sent to the patient. BIRADS: 2 Benign Finding Dictated by... Marj Young M.D. THIS IS AN ELECTRONICALLY VERIFIED REPORT Marj Young M.D. at 03/13/2017 9:28 AM [facility] A Service of [facility] & [facility] RADIOLOGY TEXT RESULTS PATIENT: SAMY BUCHANAN LOCATION: [facility] #: [id number] : 57 UNIT #: [id number] AGE: [address]: Yen Darby MD SEX: F ORDER DR: LEEANNE/genesis TD: 03/10/2017 14:11 JOB #: [id number] MEDICAL IMAGING REPORT Page 1 of 1 COPY
== END | disposition home or self-care (01) ==
LOC: CWCC 09:00
DX: C50.311 Malignant neoplasm of lower-inner quadrant of right female breast (principal); E86.0 Dehydration; D48.7 Neoplasm of uncertain behavior of other specified sites; C34.81 Malignant neoplasm of overlapping sites of right bronchus and lung; N60.01 Solitary cyst of right breast
CPT/HCPCS: 76641; G0204

== ENCOUNTER → 2017-05-17 | Outpatient (CLI) | payer OTHER ==
--- NOTE | ~2017-05-17 | CT55 ---
[facility] A Service of [facility] & [facility] RADIOLOGY TEXT RESULTS PATIENT: SAMY BUCHANAN LOCATION: [facility] : 57 UNIT #: [id number] AGE: [address]: Yen Darby MD SEX: F ORDER DR: [id number] [facility] [address] [place], [place] [address] [id number] O MR#: [id number] [facility] #: [id number] NAME: SAMY BUCHANAN : 1955 SEX: F STUDY DATE/TIME: 05/17/2017 8:31 UNIT: [facility] ROOM: STUDY DESCRIPTION: CT Chest W Con Attending Physician: Yen Darby M.D. Referring Physician: Yen Darby M.D. Ordering Physician: Yen Darby M.D. Primary Care Physician: Hollie Ramires A.P.R.N. MEDICAL IMAGING REPORT This report is preliminary unless electronic signature is present EXAM CT scan of the chest with contrast INDICATION Followup breast and lung cancer: Left breast is not healing for a year. COMPARISON 02/13/2015. TECHNIQUE Patient was given 100 mL of Isovue-370 and axial 5.00 mm images were obtained through the chest. This CT exam was performed with one or more of the following radiation dose reduction techniques: automatic exposure control, adjustment of mA and/or kV according to patient size, and iterative reconstruction. FINDINGS The right lung is clear except for minimal anterior right upper lobe fibrosis which is stable. There is extensive abnormal density in the lingula on the left side suggesting radiation therapy change perhaps or fibrosis. It is stable. There is minimal peripheral fibrosis in the left lung base. There are no nodules identified. There is a pocket/defect in the right breast posteriorly and laterally measuring 18.0 mm in depth. It is unchanged from the prior study. Visualized thyroid gland is normal. Lebx-M-Qrdlufms has its tip in the superior vena cava. There is right breast skin thickening which is stable. Findings below the diaphragm will be described in the abdomen report. There is a metallic device in the left back with wires extending into the spine. The bones are unremarkable. IMPRESSION 1. Stable fibrotic or perhaps postradiation therapy change in the lingula. [facility]. [facility] A Service of [facility] RADIOLOGY TEXT RESULTS PATIENT: SAMY BUCHANAN LOCATION: [facility] : 57 UNIT #: [id number] AGE: [address]: Yen Darby MD SEX: F ORDER DR: 2. Minimal fibrosis is suggested in the lung periphery in the left base and the right upper lobe. 3. There is a 18.0 mm deep cavity in the right breast laterally which is unchanged from the prior study 4. There is no evidence of enlarging adenopathy. The aorta is normal in size. Dictated by... Timothy Westfall M.D. THIS IS AN ELECTRONICALLY VERIFIED REPORT Timothy Westfall M.D. at 05/17/2017 1:01 PM Salvatore TD: 05/17/2017 12:02 JOB #: [id number] MEDICAL IMAGING REPORT Page 1 of 1 COPY
--- NOTE | ~2017-05-17 | CT2 ---
[facility] A Service of [facility] & [facility] RADIOLOGY TEXT RESULTS PATIENT: SAMY BUCHANAN LOCATION: [facility] : 57 UNIT #: [id number] AGE: [address]: Yen Darby MD SEX: F ORDER DR: [id number] [facility] [address] [place], [place] [address] [id number] O MR#: [id number] [facility] #: [id number] NAME: SAMY BUCHANAN : 1955 SEX: F STUDY DATE/TIME: 05/17/2017 8:31 UNIT: [facility] ROOM: STUDY DESCRIPTION: CT Abd and Pelv W Cont Attending Physician: Yen Darby M.D. Referring Physician: Yen Darby M.D. Ordering Physician: Yen Darby M.D. Primary Care Physician: Hollie Ramires A.P.R.N. MEDICAL IMAGING REPORT This report is preliminary unless electronic signature is present EXAM CT abdomen and pelvis with contrast DATE 05/17/2017 HISTORY History of breast cancer and lung cancer diagnosed in 2015 with last chemotherapy treatment October 2016 and last radiation therapy treatment March 2017. Patient states left breast not healing over past year. Observation for metastatic disease. Restaging. COMPARISON CT abdomen and pelvis with contrast 12/19/2016. PROCEDURE 5 mm axial images from the lung bases to the lesser trochanters after intravenous contrast administration. Enteric contrast was not administered. Sagittal and coronal reformed images were obtained. This CT exam was performed with one or more of the following radiation dose reduction techniques: automatic control, adjustment of mA and/or kV according to patient size, and iterative reconstruction. FINDINGS ABDOMEN FINDINGS: The liver is diffusely steatotic. No focal liver lesions are identified. Cholecystectomy changes are present. Spleen, pancreas, adrenals and kidneys are within normal limits. The appendix is normal. Moderate stool burden predominately in the ascending and transverse segments. No evidence of high-grade large or small bowel obstruction or abnormal bowel wall thickening. Moderate calcific atherosclerosis within the abdominal aorta and proximal common iliac arteries. [facility] A Service of [facility] & [facility] RADIOLOGY TEXT RESULTS PATIENT: SAMY BUCHANAN LOCATION: [facility] : 57 UNIT #: [id number] AGE: [address]: Yen Darby MD SEX: F ORDER DR: No adenopathy, soft tissue mass or free fluid is evident. PELVIS FINDINGS: Urinary bladder, uterus and rectum are normal. No pelvic adenopathy or free fluid is identified. Posterior spinal fusion changes at L4-5. Lumbar stimulator device in place. No acute or suspicious osseous abnormalities are identified. Emphysematous changes are present in the lung bases with peripheral interstitial fibrosis. IMPRESSION 1. No evidence of metastatic disease within the abdomen or pelvis. 2. Fibrotic changes in the lung bases. 3. Postsurgical changes of the lumbar spine. 4. Hepatic steatosis. 5. Cholecystectomy. 6. CT chest performed on the same date has been dictated separately. Dictated by... Marj Young M.D. THIS IS AN ELECTRONICALLY VERIFIED REPORT Marj Young M.D. at 05/18/2017 12:09 PM LEEANNE/linda TD: 05/17/2017 12:48 JOB #: [id number] MEDICAL IMAGING REPORT Page 1 of 1 COPY
[2017-05-17 09:10] LABS: POC - CREATININE 0.92 mg/dL (0.44-1.03); POC - GFR >60.0 mL/min (>60)
== END | disposition home or self-care (01) ==
LOC: CCAT 07:45
PROVIDERS: Internal Medicine Hematology
DX: C50.311 Malignant neoplasm of lower-inner quadrant of right female breast (principal); E86.0 Dehydration; D48.7 Neoplasm of uncertain behavior of other specified sites; C34.81 Malignant neoplasm of overlapping sites of right bronchus and lung; K76.0 Fatty (change of) liver, not elsewhere classified; Z90.49 Acquired absence of other specified parts of digestive tract; Z98.890 Other specified postprocedural states
CPT/HCPCS: 71260; 74177; 82565; Q9967